=== PATIENT | female | born 1955 ===

== ENCOUNTER 2021-03-07 19:47 | Emergency (ER) | payer MEDICARE, BC ==
--- NOTE | 2021-03-07 21:53 | EDM.PDOC ---
ED HPI GENERAL MEDICAL PROBLEM - General Chief Complaint: General Stated Complaint: NOT FEELING WELL Time Seen by Provider: 03/07/21 21:28 Source of Information: Reports: Patient, Family (2 daughters) History Limitations: Reports: No Limitations - History of Present Illness INITIAL COMMENTS - FREE TEXT/NARRATIVE: Mrs. Mcmullen is a very pleasant 66-year-old woman who now presents to the ED stating that she has had dyspnea, nausea with vomiting, back pain, generalized malaise, anorexia, and a nonproductive cough for approximately 1 month. She has had a subjective fever with chills. She then developed a right-sided headache and watery diarrhea about 1 week ago. Her daughters state that she is staying in bed a lot. She has taken acetaminophen, DayQuil, and NyQuil, which have not really helped. Here in the ED this evening, the patient's initial BP was found to be elevated at 169/63, otherwise, she is hemodynamically stable, afebrile, saturating 94% on room air. She appears to be relatively comfortable, in no acute distress. Prior to 1 month ago, the patient was in her usual state of good health, with no recent sore throat, ear pain, nasal or sinus congestion, cough, dyspnea, chest pain, palpitations, nausea, vomiting, constipation, diarrhea, abdominal pain, urinary symptoms, recent weight gain or weight loss, recent bloody bowel movements or black bowel movements, recent joint aches, headaches, or rashes. The patient's PCP is KEVIN Grady. She has not received a COVID vaccination, nor an influenza vaccination this season. - Related Data Allergies Allergy/AdvReac Type Severity Reaction Status Date / Time No Known Allergies Allergy Verified 03/08/21 00:04 Home Meds: Home Meds Azithromycin 1 tab PO QPM #4 tablet 03/08/21 [Rx] Past Medical History Cardiovascular History: Reports: High Cholesterol, Hypertension Genitourinary History: Reports: Urinary Incontinence (stress incontinence) Endocrine/Metabolic History: Reports: Diabetes, Type II, Hypothyroidism, Obesity/BMI 30+ - Past Surgical History HEENT Surgical History: Reports: Oral Surgery (dental extractions) GI Surgical History: Reports: Appendectomy (10 yrs old) Female Surgical History: Reports: D&C (x 1) Social & Family History - Tobacco Use Tobacco Use Status *Q: Never Tobacco User - Alcohol Use Alcohol Use History: Yes Alcohol Use Frequency: Socially - Recreational Drug Use Recreational Drug Use: No - Living Situation & Occupation Living situation: Reports: , with Spouse Occupation: Retired ED ROS GENERAL - Review of Systems Review Of Systems: Comprehensive ROS is negative, except as noted in HPI. ED EXAM, GENERAL - Physical Exam Exam: See Below Exam Limited By: No Limitations General Appearance: Alert, WD/WN, No Apparent Distress Eye Exam: Bilateral Eye: EOMI, Normal Inspection Ears: Normal External Exam, Hearing Grossly Normal Nose: Normal Inspection Throat/Mouth: Normal Inspection, Normal Lips, Normal Voice, No Airway Compromise Head: Atraumatic, Normocephalic Neck: Normal Inspection, Full Range of Motion Respiratory/Chest: No Respiratory Distress, Lungs Clear, Normal Breath Sounds, No Accessory Muscle Use Cardiovascular: Normal Peripheral Pulses, Regular Rate, Rhythm, No Gallop, No JVD, No Murmur, No Rub Peripheral Pulses: 3+: Radial (L), Radial (R) GI/Abdominal: Normal Bowel Sounds, Soft, Non-Tender, No Organomegaly, No Distention, No Abnormal Bruit, No Mass Extremities: Normal Inspection, Normal Range of Motion, Normal Capillary Refill Neurological: Alert, Oriented, Normal Cognition, No Motor/Sensory Deficits, Other (Left upper extremity intention tremor, none at rest) Psychiatric: Normal Affect Skin Exam: Warm, Dry, Intact, Normal Color, No Rash #1 Interpretation EKG Date: 03/07/21 Time: 22:47 Rhythm: NSR Rate (Beats/Min): 74 [place]: Normal P-Wave: Present QRS: Normal ST-T: Normal QT: Normal Comparison: NA - No Prior EKG Course - Vital Signs Last Recorded V/S: Last Vital Signs Temp 37.2 C 03/08/21 04:00 Pulse 88 03/08/21 04:00 Resp 20 03/08/21 04:00 BP 126/72 03/08/21 04:00 Pulse Ox 92 L 03/08/21 04:00 Orthostatic Blood Pressure [ 135/66 Standing] Orthostatic Blood Pressure [ 137/62 Supine] - Orders/Labs/Meds Orders: Active Orders 24 hr Category Date Time Status Chest w Cont [CT] Routine Exams 03/08/21 23:58 Taken BLOOD CULTURE [MREF] Stat Lab 03/08/21 01:40 Received BLOOD CULTURE [MREF] Stat Lab 03/08/21 01:55 Received Blood Culture x2 Reflex Set [OM.PC] Stat Oth 03/08/21 01:21 Ordered Labs: Laboratory Tests 03/07/21 03/07/21 03/07/21 Range/Units 20:21 22:05 22:05 WBC 4.20 (3.98-10.04) K/mm3 RBC 3.73 L (3.98-5.22) M/mm3 Hgb 11.8 D (11.2-15.7) gm/dl Hct 34.1 (34.1-44.9) % MCV 91.4 (79.4-94.8) fl MCH 31.6 (25.6-32.2) pg MCHC 34.6 (32.2-35.5) g/dl RDW Std Deviation 40.9 (36.4-46.3) fL Plt Count 256 (182-369) K/mm3 MPV 9.1 L (9.4-12.3) fl Neutrophils % (Manual) 85 H (40-60) % Band Neutrophils % 0 (0-10) % Lymphocytes % (Manual) 12 L (20-40) % Atypical Lymphs % 0 % Monocytes % (Manual) 3 (2-10) % Eosinophils % (Manual) 0 L (0.7-5.8) % Basophils % (Manual) 0 L (0.1-1.2) Platelet Estimate Adequate RBC Morph Comment Normal D-Dimer, Quantitative (0.19-0.50) mg/L Sodium 134 L (136-145) mEq/L Potassium 4.3 (3.5-5.1) mEq/L Chloride 97 L (98-107) mEq/L Carbon Dioxide 27 (21-32) mEq/L Anion Gap 14.3 (5-15) BUN 14 (7-18) mg/dL Creatinine 1.2 H (0.55-1.02) mg/dL Est Cr Clr Drug Dosing 42.06 mL/min Estimated GFR (MDRD) 45 (>60) mL/min BUN/Creatinine Ratio 11.7 L (14-18) Glucose 199 H (70-99) mg/dL Lactic Acid (0.4-2.0) mmol/L Calcium 8.9 (8.5-10.1) mg/dL Magnesium 1.6 L (1.8-2.4) mg/dL Total Bilirubin 0.4 (0.2-1.0) mg/dL AST 65 H (15-37) U/L ALT 67 H (14-59) U/L Alkaline Phosphatase 114 (46-116) U/L Troponin I < 0.017 (0.00-0.056) ng/mL C-Reactive Protein 6.5 H* (<1.0) mg/dL NT-Pro-B Natriuret Pep (0-125) pg/mL Total Protein 7.0 (6.4-8.2) g/dl Albumin 2.8 L (3.4-5.0) g/dl Globulin 4.2 gm/dL Albumin/Globulin Ratio 0.7 L (1-2) TSH 3rd Generation 1.006 (0.358-3.74) uIU/mL Urine Color (Yellow) Urine Appearance (Clear) Urine pH (5.0-8.0) Ur Specific [place] (1.005-1.030) Urine Protein (Negative) Urine Glucose (UA) (Negative) Urine Ketones (Negative) Urine Occult Blood (Negative) Urine Nitrite (Negative) Urine Bilirubin (Negative) Urine Urobilinogen (0.2-1.0) Ur Leukocyte Esterase (Negative) Urine RBC (0-5) /hpf Urine WBC (0-5) /hpf Ur Squamous Epith Cells (0-5) /hpf Urine Bacteria (FEW) /hpf Urine Mucus (FEW) /hpf Ketones (0.0-0.3) mM Mycoplasma pneumon IgM (NEGATIVE) SARS-CoV-2 RNA (KYAW) Negative (NEGATIVE) 03/07/21 03/07/21 03/07/21 Range/Units 22:05 22:05 22:05 WBC (3.98-10.04) K/mm3 RBC (3.98-5.22) M/mm3 Hgb (11.2-15.7) gm/dl Hct (34.1-44.9) % MCV (79.4-94.8) fl MCH (25.6-32.2) pg MCHC (32.2-35.5) g/dl RDW Std Deviation (36.4-46.3) fL Plt Count (182-369) K/mm3 MPV (9.4-12.3) fl Neutrophils % (Manual) (40-60) % Band Neutrophils % (0-10) % Lymphocytes % (Manual) (20-40) % Atypical Lymphs % % Monocytes % (Manual) (2-10) % Eosinophils % (Manual) (0.7-5.8) % Basophils % (Manual) (0.1-1.2) Platelet Estimate RBC Morph Comment D-Dimer, Quantitative 0.83 H (0.19-0.50) mg/L Sodium (136-145) mEq/L Potassium (3.5-5.1) mEq/L Chloride (98-107) mEq/L Carbon Dioxide (21-32) mEq/L Anion Gap (5-15) BUN (7-18) mg/dL Creatinine (0.55-1.02) mg/dL Est Cr Clr Drug Dosing mL/min Estimated GFR (MDRD) (>60) mL/min BUN/Creatinine Ratio (14-18) Glucose (70-99) mg/dL Lactic Acid 2.2 H* (0.4-2.0) mmol/L Calcium (8.5-10.1) mg/dL Magnesium (1.8-2.4) mg/dL Total Bilirubin (0.2-1.0) mg/dL AST (15-37) U/L ALT (14-59) U/L Alkaline Phosphatase (46-116) U/L Troponin I (0.00-0.056) ng/mL C-Reactive Protein (<1.0) mg/dL NT-Pro-B Natriuret Pep 306 H (0-125) pg/mL Total Protein (6.4-8.2) g/dl Albumin (3.4-5.0) g/dl Globulin gm/dL Albumin/Globulin Ratio (1-2) TSH 3rd Generation (0.358-3.74) uIU/mL Urine Color (Yellow) Urine Appearance (Clear) Urine pH (5.0-8.0) Ur Specific [place] (1.005-1.030) Urine Protein (Negative) Urine Glucose (UA) (Negative) Urine Ketones (Negative) Urine Occult Blood (Negative) Urine Nitrite (Negative) Urine Bilirubin (Negative) Urine Urobilinogen (0.2-1.0) Ur Leukocyte Esterase (Negative) Urine RBC (0-5) /hpf Urine WBC (0-5) /hpf Ur Squamous Epith Cells (0-5) /hpf Urine Bacteria (FEW) /hpf Urine Mucus (FEW) /hpf Ketones (0.0-0.3) mM Mycoplasma pneumon IgM (NEGATIVE) SARS-CoV-2 RNA (KYAW) (NEGATIVE) 03/07/21 03/07/21 03/08/21 Range/Units 22:05 22:05 01:32 WBC (3.98-10.04) K/mm3 RBC (3.98-5.22) M/mm3 Hgb (11.2-15.7) gm/dl Hct (34.1-44.9) % MCV (79.4-94.8) fl MCH (25.6-32.2) pg MCHC (32.2-35.5) g/dl RDW Std Deviation (36.4-46.3) fL Plt Count (182-369) K/mm3 MPV (9.4-12.3) fl Neutrophils % (Manual) (40-60) % Band Neutrophils % (0-10) % Lymphocytes % (Manual) (20-40) % Atypical Lymphs % % Monocytes % (Manual) (2-10) % Eosinophils % (Manual) (0.7-5.8) % Basophils % (Manual) (0.1-1.2) Platelet Estimate RBC Morph Comment D-Dimer, Quantitative (0.19-0.50) mg/L Sodium (136-145) mEq/L Potassium (3.5-5.1) mEq/L Chloride (98-107) mEq/L Carbon Dioxide (21-32) mEq/L Anion Gap (5-15) BUN (7-18) mg/dL Creatinine (0.55-1.02) mg/dL Est Cr Clr Drug Dosing mL/min Estimated GFR (MDRD) (>60) mL/min BUN/Creatinine Ratio (14-18) Glucose (70-99) mg/dL Lactic Acid (0.4-2.0) mmol/L Calcium (8.5-10.1) mg/dL Magnesium (1.8-2.4) mg/dL Total Bilirubin (0.2-1.0) mg/dL AST (15-37) U/L ALT (14-59) U/L Alkaline Phosphatase (46-116) U/L Troponin I (0.00-0.056) ng/mL C-Reactive Protein (<1.0) mg/dL NT-Pro-B Natriuret Pep (0-125) pg/mL Total Protein (6.4-8.2) g/dl Albumin (3.4-5.0) g/dl Globulin gm/dL Albumin/Globulin Ratio (1-2) TSH 3rd Generation (0.358-3.74) uIU/mL Urine Color Yellow (Yellow) Urine Appearance Clear (Clear) Urine pH 6.0 (5.0-8.0) Ur Specific [place] <=1.005 (1.005-1.030) Urine Protein 1+ H (Negative) Urine Glucose (UA) Negative (Negative) Urine Ketones Negative (Negative) Urine Occult Blood Trace-lysed H (Negative) Urine Nitrite Negative (Negative) Urine Bilirubin Negative (Negative) Urine Urobilinogen 0.2 (0.2-1.0) Ur Leukocyte Esterase Negative (Negative) Urine RBC 0-5 (0-5) /hpf Urine WBC 0-5 (0-5) /hpf Ur Squamous Epith Cells 5-10 H (0-5) /hpf Urine Bacteria Few (FEW) /hpf Urine Mucus Few (FEW) /hpf Ketones 0.01 (0.0-0.3) mM Mycoplasma pneumon IgM Positive H (NEGATIVE) SARS-CoV-2 RNA (KYAW) (NEGATIVE) Meds: Medications Discontinued Medications Generic Name Dose Route Start Last Admin Trade Name Freq PRN Reason Stop Dose Admin Azithromycin 500 mg 03/08/21 01:20 03/08/21 03:12 Azithromycin 250 Mg Tab PO 03/08/21 01:21 500 mg ONETIME STA Administration Sodium Chloride 1,000 mls @ 150 mls/hr 03/07/21 23:45 03/08/21 00:06 Normal Saline IV 150 mls/hr ASDIRECTED AJAY Administration Magnesium Sulfate 2 gm/ Premix 50 mls @ 25 mls/hr 03/07/21 23:44 03/08/21 00:05 IV 03/08/21 01:43 25 mls/hr ONETIME ONE Administration Ceftriaxone Sodium 2 gm/ 100 mls @ 200 mls/hr 03/08/21 01:19 03/08/21 03:12 Sodium Chloride IV 03/08/21 01:48 200 mls/hr ONETIME STA Administration - Re-Assessments/Exams Free Text/Narrative Re-Assessment/Exam: 03/07/21 21:53 A swab for the SARS-CoV-2 virus was collected at triage. It has not yet resulted. I have ordered a work-up that includes orthostatics, numerous blood tests, a urinalysis, a swab for influenza A + B, a chest x-ray, a CT of the head without contrast, and an ECG. 03/07/21 23:37 CT of the head without contrast is read by [facility] as "No acute intracranial abnormality." Two-view chest radiograph reviewed. The cardiac silhouette is within normal limits. No pulmonary vascular congestion. No pleural effusions. Large left upper lobe infiltrate, with possible small infiltrates in the left lower lobe and right middle lobe seen, as well. There are areas vacuation on the left side, and a peripheral circular opacity on the right, concerning for malignancy. No pneumothorax. Formal read per the Radiologist pending. The patient's CBC is unremarkable. Her CMP is remarkable for slight hyponatremia of 134, and hyperglycemia of 199. Her AST/ALT are slightly elevated at 65/67, respectively, with the remainder of her CMP being unremarkable. Her magnesium level is modestly depressed at 1.6. Her lactic acid level is elevated at 2.2. Her serum ketones are within normal limits at 0.01. Her TSH is within normal limits at 1.006. Her troponin is undetectably low. Her pro-BNP is mildly elevated at 306. Her D-dimer is slightly elevated at 0.83. Her CRP is elevated at 6.5. Her swab for the SARS-CoV-2 virus is negative. Her swab for influenza A + B is negative. Results of the patient's orthostatics and urinalysis are still pending. Based on the above, I have ordered a 2 g Mg-rider and a CT of the chest with IV contrast to evaluate for malignancy. The patient will be given IV fluid. 03/08/21 01:16 The patient is not orthostatic. CT of the chest with IV contrast is read by [facility] as: Bilateral areas of parenchymal opacification, greater on the left. Consider atelectasis and/or pneumonia. 2. No pulmonary emboli are identified in the main pulmonary arteries or proximal primary branches. 3. Hepatic steatosis. 4. Simple cyst left lobe of the liver and right kidney not requiring follow-up. The patient has not yet provided a urine sample for urinalysis. Based on the above, I have ordered a mycoplasma IgM and 2 sets of blood cultures. The patient will be treated with Rocephin 2 g IV and azithromycin 500 mg po. 03/08/21 01:53 I updated the patient and her daughters of the situation thus far. 03/08/21 02:42 The mycoplasma pneumoniae IgM serology is positive. Results of the urinalysis are still pending. 03/08/21 03:31 The patient's urinalysis is unremarkable. 03/08/21 03:35 Test results discussed with the patient and her 2 daughters. As above, it appears that the patient is suffering from mycoplasma pneumonia. She was started on azithromycin 500 mg here in the ED, and I will submit a prescription for her to complete an additional 4 days of 250 mg daily. She should stay adequately hydrated. If she desires, she can purchase an [id number] oxygen pulse oximeter, to monitor her oxygen saturation. Departure - Departure Time of Disposition: 03:39 Disposition: Home, Self-Care 01 Condition: Good Clinical Impression: Mycoplasma pneumonia, Hyperglycemia due to type 2 diabetes mellitus, Hypomagnesemia - Discharge Information *PRESCRIPTION DRUG MONITORING PROGRAM REVIEWED*: Not Applicable *COPY OF PRESCRIPTION DRUG MONITORING REPORT IN PATIENT MILA: Not Applicable Prescriptions: Azithromycin 1 tab PO QPM #4 tablet Instructions: Hypomagnesemia, Hyperglycemia, [id number], Community-Acquired Pneumonia, Adult, [id number] Referrals: Shantel Gutiérrez PA-C [Primary Care Provider] - Forms: ED Department Discharge Additional Instructions: You were seen in the emergency room for 1 month of shortness of breath with a dry cough, nausea, vomiting, back pain, general malaise, no appetite, and 1 week of a right-sided headache. Work-up in the ER included positional blood pressure checks, numerous blood tests, 2 sets of blood cultures, a urinalysis, a swab for the SARS-CoV-2 virus and influenza A + B viruses, a chest x-ray, a CT of your head, a CT of your chest, and an ECG. Your blood sugar was found to be modestly elevated at 199. Your magnesium level was found to be mildly depressed at 1.6. You were given IV magnesium replacement in the ER. Your chest x-ray was significantly abnormal. The CT of your chest found that it was pneumonia. A blood test confirmed that it is mycoplasma pneumonia. You were started on the antibiotic azithromycin in the ER. A prescription for azithromycin has been sent to the to the [facility], located just south and across the [address] from [facility]. Take 1 tablet of azithromycin every evening, starting this evening, 03/08/2021, as prescribed. Finish the entire prescription unless told otherwise by a doctor. If you desire, you can purchase an [id number] home pulse oximeter, to check your oxygen saturation. If your oxygen saturation drops down to 90%, consistently, please return to the ER for reevaluation. Sepsis Event Note (ED) - Evaluation Sepsis Screening Result: No Definite Risk - My Orders Last 24 Hours: My Active Orders 03/08/21 01:21 Blood Culture x2 Reflex Set [OM.PC] Stat 03/08/21 01:40 BLOOD CULTURE [MREF] Stat 03/08/21 01:55 BLOOD CULTURE [MREF] Stat 03/08/21 23:58 Chest w Cont [CT] Routine - Assessment/Plan Last 24 Hours: My Active Orders 03/08/21 01:21 Blood Culture x2 Reflex Set [OM.PC] Stat 03/08/21 01:40 BLOOD CULTURE [MREF] Stat 03/08/21 01:55 BLOOD CULTURE [MREF] Stat 03/08/21 23:58 Chest w Cont [CT] Routine
[2021-03-07] MEDS ORDERED: Magnesium Sulfate/Water 2 GM in Premix Bag 1 BAG IV ONE (23:44)
[2021-03-07] MEDS ORDERED: Sodium Chloride 0.9% 1,000 ML IV SCH (23:45)
[2021-03-08] MEDS ORDERED: cefTRIAXone 2 GM in Sodium Chloride 0.9% 100 ML IV STA (01:19)
[2021-03-08] MEDS ORDERED: Azithromycin 250 MG Tab PO STA (01:20)
--- NOTE | 2021-03-08 05:43 | CT ---
Head CT Technique: Multiple axial sections through the brain were obtained. Intravenous contrast was not utilized. Reconstructed coronal and sagittal images were obtained. Comparison: No prior intracranial imaging is available. Findings: Ventricles along with basal cisterns and sulci over the convexities are within normal limits for the patient's age. No abnormal parenchymal densities are seen. No evidence of intracranial hemorrhage is seen. No midline shift or mass-effect is seen. Bone window settings were reviewed. Visualized mastoid sinuses and paranasal sinuses show nothing. No acute calvarial abnormality is appreciated. Impression: 1. Nothing acute is seen on noncontrast head CT study. Diagnostic code #1 I agree with preliminary report from [facility], finalized on 03/07/21, 9:32 PM PANTOGRAPH SETTER, code 1
--- NOTE | 2021-03-08 05:44 | CR ---
Chest: PA and lateral views of the chest were obtained. Comparison: No prior chest x-ray is available, subsequent chest CT performed later on the same day is available. Diffuse parenchymal change is seen throughout the left lung. Lesser parenchymal change is seen within the right lung. Heart size is normal. Tortuous thoracic aorta is seen. Bony structure shows nothing acute. Impression: 1. Diffuse increased density throughout the left chest as well as lesser density within the right chest. Findings presumably represent diffuse pneumonia, please rule out COVID disease. Diagnostic code #3
--- NOTE | 2021-03-09 15:13 | CT ---
CT chest Technique: Multiple axial sections through the chest were obtained. Intravenous contrast was utilized. Reconstructed coronal and sagittal images were obtained. Comparison: Chest x-ray performed earlier on the same day (10:58 PM). Findings: Cyst is noted within the left lobe of the liver measuring 3.6 cm. Fatty infiltration is seen within the liver. Small hiatal hernia is noted. Cyst is noted within the right kidney measuring 1.3 cm. Partially visualized cyst within the left kidney is noted measuring roughly 1.2 cm. No pericardial thickening is seen. Thoracic aorta shows no aneurysm. Small lymph nodes are seen within the mediastinum which are felt to be within normal limits. No axillary adenopathy is seen. Patchy areas of increased density are scattered throughout the left lung. Lesser parenchymal density is seen within the right middle lobe. Bone window settings were reviewed which show no acute osseous finding. Impression: 1. Fatty infiltration within the liver. Cyst is noted within the left lobe of the liver. Cysts are noted within both kidneys. 2. Diffuse parenchymal densities throughout the left lung and increased density within the right middle lobe. Please correlate if patient has symptoms of COVID disease. Diagnostic code #3 I agree with preliminary report from [facility], finalized on 03/08/21, 2:13 AM GRADING SUPERVISOR, code 1
== END 2021-03-08 04:00 | disposition home or self-care (01) ==
LOC: JD.ED 19:47
DX: E11.65 Type 2 diabetes mellitus with hyperglycemia (principal); E83.42 Hypomagnesemia; B96.0 Mycoplasma pneumoniae [M. pneumoniae] as the cause of diseases classified elsewhere; R74.02 Elevation of levels of lactic acid dehydrogenase [LDH]; R79.82 Elevated C-reactive protein (CRP); I10 Essential (primary) hypertension; E11.9 Type 2 diabetes mellitus without complications; E66.9 Obesity, unspecified; Z68.34 Body mass index [BMI] 34.0-34.9, adult; Z20.822 Contact with and (suspected) exposure to COVID-19; R51.9 Headache, unspecified
CPT/HCPCS: 36415; 70450; 71046; 71260; 80053; 81001; 82009; 83605; 83735; 83880; 84443; 84484; 85007; 85027; 85379; 86140; 86738; 87040; 87804; 93005; 96365; 96366; 96367; 99284; A9270; J0696; J3475; J7030; U0002; 93010; 99285